=== PATIENT | female | born 1950 | race Caucasian/White ===

== ENCOUNTER 2016-07-27 12:06 | Inpatient (IN) | payer MEDICAID ==
[~2016-07-27] VITALS: Ht 152.4 cm; Wt 73.8 kg
[2016-07-27] MEDS ORDERED: SOD CHLORIDE 0.9% 1,000 ML IV STA ×3 (12:09→15:16)
[2016-07-27] MEDS ORDERED: AZITHROMYCIN 500MG/NS (PMX) 250 ML IV STA (12:09)
[2016-07-27] MEDS ORDERED: METHYLPREDNISOLONE 125 MG INJ IV STA (12:09)
[2016-07-27] MEDS ORDERED: IPRATROPIUM (NEB) 0.5 MG/2.5 ML AMP NEB STA (12:09)
[2016-07-27] MEDS ORDERED: LEVALBUTEROL (NEB) 1.25 MG/0.5 ML AMP INH STA (12:09)
[2016-07-27] MEDS ORDERED: CEFTRIAXONE 1 GM/50 ML (PMX) 50 ML IVPB STA (12:09)
[2016-07-27] MEDS ORDERED: CAPT25TA3 PO (12:43)
[2016-07-27] MEDS ORDERED: PRED50TA PO (12:44)
--- NOTE | 2016-07-27 12:44 | RADRPT ---
PROCEDURE: XR Chest. CLINICAL INDICATION: Cough. Sepsis. TECHNIQUE: Single frontal view. COMPARISON: None. FINDINGS: The lungs are clear. The heart is enlarged. There is no pleural effusion. There is no pneumothorax. IMPRESSION: 1. Cardiomegaly. 2. Clear lungs. RPTAT: QQ .Darien Zamora MD, MD Date Time Electronically viewed and signed by .Darien Zamora MD, MD on 07/27/2016 12:43 .R/
[2016-07-27 13:22] LABS: BASOPHILS % 0.4 % (0.0-2.0); EOSINOPHILS # 0.1 10^3/ul (0.0-0.5); EOSINOPHILS % 0.9 % (0.0-7.0); HEMOGLOBIN 15.5 g/dl (12.0-16.0); LYMPHOCYTES # 0.9 10^3/ul (0.8-2.9); LYMPHOCYTES % 7.8 % (15.0-51.0); MEAN CORPUSCULAR HEMOGLOBIN 29.9 pg (29.0-33.0); MEAN CORPUSCULAR HGB CONC 34.4 g/dl (32.0-37.0); MEAN CORPUSCULAR VOLUME 86.9 fl (82.0-101.0); MONOCYTE # 1.4 10^3/ul (0.3-0.9); MONOCYTES % 12.4 % (0.0-11.0); NEUTROPHIL # 9.1 10^3/ul (1.6-7.5); NEUTROPHILS % 78.5 % (39.0-77.0); PLATELET COUNT 167 10^3/UL (140-440); RED BLOOD COUNT 5.18 10^6/ul (4.20-5.40); RED CELL DISTRIBUTION WIDTH 12.4 % (11.5-14.5); UNCORRECTED WBC 11.6 10^3/ul (4.8-10.8); WHITE BLOOD COUNT 11.6 10^3/ul (4.8-10.8)
[2016-07-27 13:24] LABS: CONDITION 1
[2016-07-27 13:27] LABS: ALBUMIN 4.6 g/dl (3.3-4.9); CHLORIDE 102 mmol/L (97-110); SODIUM 143 mmol/L (135-144)
[2016-07-27 13:28] LABS: POTASSIUM 3.8 mmol/L (3.5-5.1)
[2016-07-27 13:30] LABS: ALANINE AMINOTRANSFERASE 29 IU/L (13-69); ALBUMIN/GLOBULIN RATIO 1.39; ALKALINE PHOSPHATASE 88 IU/L (42-121); ANION GAP 21 (8-16); ASPARTATE AMINO TRANSFERASE 23 IU/L (15-46); BILIRUBIN,INDIRECT 0.2 mg/dl (0-1.1); BILIRUBIN,TOTAL 0.2 mg/dl (0.2-1.3); BLOOD UREA NITROGEN 11 mg/dl (7-20); CARBON DIOXIDE 24 mmol/L (21-31); CREATININE 0.47 mg/dl (0.44-1.00); GLUCOSE 101 mg/dl (70-220); TOTAL PROTEIN 7.9 g/dl (6.1-8.1)
[2016-07-27 13:31] LABS: CALCIUM 9.7 mg/dl (8.4-10.2)
[2016-07-27 13:41] LABS: INR 0.89; PT RATIO 0.9
[2016-07-27 13:42] LABS: PARTIAL THROMBOPLASTIN TIME 29.7 Sec (25.0-35.0)
[2016-07-27 13:43] LABS: TROPONIN-I < 0.012 ng/ml (0.00-0.12)
[2016-07-27] MEDS ORDERED: ONDANSETRON 4 MG INJ IV PRN ×2 (15:00→16:00)
[2016-07-27] MEDS ORDERED: ACETAMINOPHEN 325 MG TAB PO PRN ×2 (15:00→16:00)
[2016-07-27 15:39] LABS: ADD UMIC YES; URINE BILIRUBIN (Dip) NEGATIVE (NEGATIVE); URINE BLOOD (Dip) TRACE (NEGATIVE); URINE COLOR LT. YELLOW (YELLOW); URINE GLUCOSE (Dip) NEGATIVE (NEGATIVE); URINE KETONES (Dip) NEGATIVE (NEGATIVE); URINE LEUKOCYTE ESTERASE (Dip) NEGATIVE (NEGATIVE); URINE NITRITE (Dip) NEGATIVE (NEGATIVE); URINE TOTAL PROTEIN (Dip) NEGATIVE (NEGATIVE); URINE UROBILINOGEN (Dip) 0.2 E.U./dL (0.1-1.0)
[2016-07-27 15:55] LABS: SQUAMOUS EPITHELIAL CELL,UR OCCASIONAL
[2016-07-27] MEDS ORDERED: HYDROCODONE/APAP (5/325) TAB PO PRN ×2 (16:00)
[2016-07-27] MEDS ORDERED: morphine 2 MG INJ IV PRN (16:00)
[2016-07-27] MEDS ORDERED: MAGNESIUM HYDROXIDE 30ML CUP PO PRN (16:00)
[2016-07-27] MEDS ORDERED: ACET/BUTAL/CAFF TAB PO ONE (16:00)
[2016-07-27] MEDS ORDERED: BISACODYL 10 MG SUPP PR PRN (16:00)
[2016-07-27] MEDS ORDERED: NACL 0.9% 3 ML SYG IV SCH (16:00)
[2016-07-27] MEDS ORDERED: ACET/BUTAL/CAFF TAB PO PRN (16:00)
[2016-07-27] MEDS ORDERED: DOCUSATE SODIUM 100 MG CAP PO PRN (16:00)
[2016-07-27] MEDS ORDERED: ACETAMINOPHEN 650 MG SUPP PR PRN (16:00)
--- NOTE | 2016-07-27 16:11 | HP ---
Date/Time of Note Date/Time of Note DATE: 07/27/16 TIME: 16:01 Assessment/Plan VTE Prophylaxis VTE Prophylaxis Intervention: SCD's Assessment/Plan Chief Complaint/Hosp Course Assessment and plan 1. Acute asthma exacerbation. Patient did state she was diagnosed with asthma 45 years ago. She does not know which bronchitis she is currently taking. We'll provide her with Xopenex as well as Atrovent given patient's tachycardia. We'll get door assembler follow. We'll start on steroid. Continue on O2 and titrate down as tolerated 2. Suspect sepsis. Etiology and clear at this time. Patient presents with fever as well as tachycardia. We'll start on antibiotics for now. Suspect URI. We'll follow up on cam cultures 3. Accelerated hypertension. We'll plan on antihypertensives and adjust as needed 4. Leukocytosis secondary to #2. We'll provide with antibiotics for now. Initial lactic acid noted at 1.7 5. Tachycardia likely in response to #1 and #2. We'll treat underlying cause. Continue telemetry monitoring. Pattern Maker Programer to follow pending clinical course. We'll get echocardiogram. DVT prophylaxis: [facility] Admission process time is 40 minutes Discussed but of care with Dr. Khan Problems: HPI/ROS Admit Date/Time Admit Date/Time Hx of Present Illness This is a 66-year-old female with history of hypertension and asthma who recently moved to the [facility] from [facility] roughly 2 months ago came to [facility] due to reports of shortness of breath. According to the patient shouldn't having shortness of breath on and off intermittently since May 2016. She did state that it progressively got worse and went to [facility] one week ago and is prescribed prednisone there. No reports of pneumonia or any kind of upper respiratory infection. She does state that she takes some inhalers at home but does not know the name. Upon arrival to [facility] she was noted to have active bronchospasm.Chest radiograph showed clear lungs and only cardiomegaly. No pleural effusion was seen. Additional laboratory work should the patient have slight leukocytosis with white count 11.6 she was also noted to be febrile with temperature 100.1 and pulse at 144 with also noted accelerated hypertension with blood pressure as high as 175/101. She also noted with pulse ox is low as 89%. She denies any chest pain but does state that she has some rib pain on deep inspiration. Denies any fevers at home. States that she does have some dyspnea on exertion. No nausea or vomiting. No reported dysuria. Patient does report better breathing after receiving Solu-Medrol as well as breathing treatment. We will evaluate her for the aforementioned issues. ROS 12 point review of systems obtained and entirely negative except that mentioned in history of present illness PMH/Family/Social Past Medical History Medical/surgical history 1. Asthma 2. Hypertension Family History Significant Family History: no pertinent family hx Social History Alcohol Use: none Smoking Status: Never smoker Drug Use: none Exam/Review of Systems Vital Signs Vitals Vital Signs Date Time Temp Pulse Resp B/P Pulse Ox O2 Delivery O2 Flow Rate FiO2 07/27/16 15:39 99.7 137 24 143/82 93 3.0 07/27/16 13:05 Nasal Cannula Exam Exam General: No acute signs or symptoms of distress Eyes: pupils equal round, Anicteric sclera Neck: Supple nontender, no JVD Cardiac: S1-S2 auscultated, tachycardic Pulmonary: Noted with wheezing bilateral lung whitmore GI: Abdomen soft nontender nondistended, bowel sounds active Extremities: No edema bilateral lower extremities Skin: Clean dry and intact Neurologic: Alert to person place and time and situation Labs Result Diagram: 07/27/16 1245 07/27/16 1245 Medications Medications Current Medications Captopril (Capoten) 25 mg DAILY PO ; Start 07/28/16 at 09:00; Status UNV Albuterol/ Ipratropium (Duoneb) 3 ml Q4 HHN ; Start 07/27/16 at 17:00; Status UNV Methylprednisolone Sodium Succinate (Solu-Medrol) 60 mg BID IV ; Start 07/27/16 at 21:00; Status UNV Ondansetron HCl (Zofran Inj) 4 mg Q6H PRN IV NAUSEA AND/OR VOMITING; Start 07/27 at 16:00; Status UNV Acetaminophen (Tylenol Tab) 650 mg Q6H PRN PO PAIN LEVEL 1-3 OR FEVER; Start at 16:00; Status UNV Acetaminophen (Tylenol Supp) 650 mg Q6H PRN TN PAIN LEVEL 1-3 OR FEVER; Start 07/27/16 at 16:00; Status UNV Acetaminophen/ Hydrocodone Bitart ([place] (5/325)) 1 tab Q6H PRN PO MODERATE PAIN LEVEL 4-6; Start 07/27/16 at 16:00; Status UNV Acetaminophen/ Hydrocodone Bitart ([place] (5/325)) 2 tab Q6H PRN PO SEVERE PAIN LEVEL 7-10; Start 07/27/16 at 16:00; Status UNV Morphine Sulfate (morphine) 2 mg Q4H PRN IV SEVERE PAIN LEVEL 7-10; Start at 16:00; Status UNV Docusate Sodium (Colace) 100 mg Q12H PRN PO CONSTIPATION; Start 07/27/16 at 16: 00; Status UNV Magnesium Hydroxide (Milk Of Mag) 30 ml DAILY PRN PO CONSTIPATION; Start at 16:00; Status UNV Bisacodyl (Dulcolax Supp) 10 mg DAILY PRN TN CONSTIPATION; Start 07/27/16 at 16: 00; Status UNV Famotidine (Pepcid Iv) 20 mg Q12 IV ; Start 07/27/16 at 21:00; Status UNV Acetaminophen/ Butalbital/ Caffeine (Fioricet) 2 tab ONCE ONCE PO ; Start at 16:00; Stop 07/27/16 at 16:01; Status UNV Acetaminophen/ Butalbital/ Caffeine (Fioricet) 2 tab Q4 PRN PO cephalgia; Start 07/27/16 at 16:00; Status UNV GEORGE FELIZ Jul 27, 2016 16:10
[2016-07-27] MEDS ORDERED: LORAZEPAM 2 MG INJ IV PRN (16:30)
[2016-07-27] MEDS ORDERED: hydrALAzine 20 MG INJ IV PRN (16:30)
--- NOTE | 2016-07-27 16:46 | ERA ---
ER Documentation Chief Complaint Date/Time DATE: 07/27/16 TIME: 16:43 Chief Complaint BROUGHT IN VIA EMS DUE TO HIGH BLOOD PRESSURE, FEVER, AND SOB HPI Patient is a 58-year-old female with asthma and hypertension who presents with cough and fever. The patient was brought in by ambulance. She also has high blood pressure. She was at the [place] emergency department 1 week ago and was treated with prednisone for asthma exacerbation. However she has continued to worsen. She does not currently have a primary doctor. Symptoms have been constant and worsening. ROS All systems reviewed and are negative except as per history of present illness. Medications Home Meds Reported Medications Prednisone* (Prednisone*) 50 Mg Tablet, 50 MG PO DAILY, TAB STARTED 07-18-16 07/27/16 Captopril* (Captopril*) 25 Mg Tablet, 25 MG PO DAILY, #60 TAB BROUGHT MED FROM [facility] 07/27/16 Allergies Allergies: Coded Allergies: No Known Allergy (Unverified , 07/27/16) PMhx/Soc Medical and Surgical Hx: pt denies Surgical Hx Hx Respiratory Disorders: Yes (ASTHMA ) Hx Cardiac Disorders: Yes (HTN) Hx Alcohol Use: No Hx Substance Use: No Hx Tobacco Use: No Smoking Status: Never smoker FmHx Family History: No diabetes Physical Exam Vitals Vital Signs Date Time Temp Pulse Resp B/P Pulse Ox O2 Delivery O2 Flow Rate FiO2 07/27/16 15:39 99.7 137 24 143/82 93 3.0 07/27/16 13:05 144 24 93 Nasal Cannula 3.0 07/27/16 12:55 Nasal Cannula 2 07/27/16 12:22 100.1 144 24 175/101 89 Physical Exam Const: Mild distress Head: Atraumatic Eyes: Normal Conjunctiva ENT: Normal External Ears, Nose and Mouth. Neck: Full range of motion..~ No meningismus. Resp: Wheezing diffusely Cardio: Tachycardic rate Abd: Soft, non tender, non distended. Normal bowel sounds Skin: Pale Back: No midline or flank tenderness Ext: No cyanosis, or edema Neur: Awake and alert Psych: Normal Mood and Affect Result Diagram: 07/27/16 1245 07/27/16 1245 Results 24 hrs Laboratory Tests Test 07/27/16 11:24 07/27/16 12:45 07/27/16 15:19 Lactic Acid Level 1.7mmol/L Activated Partial Thromboplast Time 29.7Sec Alanine Aminotransferase (ALT/SGPT) 29IU/L Albumin 4.6g/dl Albumin/Globulin Ratio 1.39 Alkaline Phosphatase 88IU/L Anion Gap 21 Aspartate Amino Transf (AST/SGOT) 23IU/L Basophils # 0.010^3/ul Basophils % 0.4% Blood Urea Nitrogen 11mg/dl Calcium Level 9.7mg/dl Carbon Dioxide Level 24mmol/L Chloride Level 102mmol/L Creatinine 0.47mg/dl Direct Bilirubin 0.00mg/dl Eosinophils # 0.110^3/ul Eosinophils % 0.9% Globulin 3.30g/dl Glucose Level 101mg/dl Hematocrit 45.0% Hemoglobin 15.5g/dl INR International Normalized Ratio 0.89 Indirect Bilirubin 0.2mg/dl Lymphocytes # 0.910^3/ul Lymphocytes % 7.8% Mean Corpuscular Hemoglobin 29.9pg Mean Corpuscular Hemoglobin Concent 34.4g/dl Mean Corpuscular Volume 86.9fl Mean Platelet Volume 10.0fl Monocytes # 1.410^3/ul Monocytes % 12.4% Neutrophils # 9.110^3/ul Neutrophils % 78.5% Nucleated Red Blood Cells # 0.010^3/ul Nucleated Red Blood Cells % 0.0/100WBC Platelet Count 49564^3/UL Potassium Level 3.8mmol/L Prothrombin Time 12.0Sec Prothrombin Time Ratio 0.9 Red Blood Count 5.1810^6/ul Red Cell Distribution Width 12.4% Sodium Level 143mmol/L Total Bilirubin 0.2mg/dl Total Protein 7.9g/dl Troponin I < 0.012ng/ml White Blood Count 11.610^3/ul Urine Bilirubin NEGATIVE Urine Clarity CLEAR Urine Color LT. YELLOW Urine Glucose NEGATIVE% Urine Hemoglobin TRACE Urine Ketones NEGATIVE Urine Leukocyte Esterase NEGATIVE Urine Microscopic RBC 2-5/HPF Urine Microscopic WBC 0-2/HPF Urine Nitrite NEGATIVE Urine Specific [place] 1.010 Urine Squamous Epithelial Cells OCCASIONAL Urine Total Protein NEGATIVE Urine Urobilinogen 0.2 E.U./dL Urine pH 6.5 Current Medications Medications (Trade) Dose Ordered Sig/[place] Route PRN Reason Start Time Stop Time Status Last Admin Dose Admin Ceftriaxone Sodium 50 ml @ 100 mls/hr ONCE STAT IVPB 07/27/16 12:09 2/3/17 12:38 DC 07/27/16 13:00 Azithromycin 250 ml @ 250 mls/hr ONCE STAT IV 07/27/16 12:09 07/27/16 13:08 DC 07/27/16 14:14 Sodium Chloride 1,000 ml @ 1,000 mls/hr Q1H STAT IV 07/27/16 12:09 07/27/16 13:08 DC 07/27/16 13:01 Sodium Chloride (NS) 1,000 ml @ 1,000 mls/hr Q1H STAT IV 07/27/16 12:09 07/27/16 13:08 DC 07/27/16 14:16 Ipratropium [place] (Atrovent 0.02% (Neb)) 0.5 mg ONCE STAT NEB 07/27/16 12:09 07/27/16 12:11 DC 07/27/16 13:04 Methylprednisolone Sodium Succinate (Solu-Medrol) 125 mg ONCE STAT IV 07/27/16 12:09 07/27/16 12:11 DC 07/27/16 13:00 Levalbuterol (Xopenex Neb) 1.25 mg ONCE STAT INH 07/27/16 12:09 07/27/16 12:11 DC 07/27/16 13:04 Ondansetron HCl (Zofran Inj) 4 mg BRIDGE ORDER PRN IV NAUSEA AND/OR VOMITING 07/27/16 15:00 07/28/16 14:59 Acetaminophen 650 mg 650 mg ER BRIDGE PRN PO MILD PAIN/FEVER 07/27/16 15:00 07/28/16 14:59 07/27/16 15:42 Sodium Chloride (NS) 1,000 ml @ 1,000 mls/hr Q1H STAT IV 07/27/16 15:16 07/27/16 16:15 DC Captopril (Capoten) 25 mg DAILY PO 07/28/16 09:00 UNV Albuterol/ Ipratropium (Duoneb) 3 ml Q4 HHN 07/27/16 17:00 07/27/16 17:00 DC Methylprednisolone Sodium Succinate (Solu-Medrol) 60 mg BID IV 07/27/16 21:00 UNV IV Flush (NS 3 ml) 3 ml PER PROTOCOL IV 07/27/16 16:00 UNV Ondansetron HCl (Zofran Inj) 4 mg Q6H PRN IV NAUSEA AND/OR VOMITING 07/27/16 16:00 UNV Acetaminophen (Tylenol Tab) 650 mg Q6H PRN PO PAIN LEVEL 1-3 OR FEVER 07/27/16 16:00 UNV Acetaminophen (Tylenol Supp) 650 mg Q6H PRN PA PAIN LEVEL 1-3 OR FEVER 07/27/16 16:00 UNV Acetaminophen/ Hydrocodone Bitart ([place] (5/325)) 1 tab Q6H PRN PO MODERATE PAIN LEVEL 4-6 07/27/16 16:00 UNV Acetaminophen/ Hydrocodone Bitart ([place] (5/325)) 2 tab Q6H PRN PO SEVERE PAIN LEVEL 7-10 07/27/16 16:00 UNV Morphine Sulfate (morphine) 2 mg Q4H PRN IV SEVERE PAIN LEVEL 7-10 07/27/16 16:00 UNV Docusate Sodium (Colace) 100 mg Q12H PRN PO CONSTIPATION 07/27/16 16:00 UNV Magnesium Hydroxide (Milk Of Mag) 30 ml DAILY PRN PO CONSTIPATION 07/27/16 16:00 UNV Bisacodyl (Dulcolax Supp) 10 mg DAILY PRN PA CONSTIPATION 07/27/16 16:00 UNV Famotidine (Pepcid Iv) 20 mg Q12 IV 07/27/16 21:00 UNV Acetaminophen/ Butalbital/ Caffeine (Fioricet) 2 tab ONCE ONCE PO 07/27/16 16:00 07/27/16 16:17 DC Acetaminophen/ Butalbital/ Caffeine (Fioricet) 2 tab Q4 PRN PO cephalgia 07/27/16 16:00 UNV Levalbuterol (Xopenex Hfa) 1 puff Q4 INH 07/27/16 17:00 UNV Ipratropium [place] 0.5 mg 0.5 mg Q6 HHN 07/27/16 18:00 UNV Ceftriaxone Sodium (Rocephin) 50 ml @ 100 mls/hr DAILY IVPB 07/28/16 09:00 UNV Amlodipine Besylate (Norvasc) 5 mg BID PO 07/27/16 21:00 UNV Hydralazine HCl (Apresoline) 10 mg Q4 PRN IV sbp>160 07/27/16 16:30 UNV Lorazepam (Ativan) 0.5 mg Q6 PRN IV anxiety 07/27/16 16:30 UNV Procedures/MDM EKG read by me: Rate/Rhythm: Sinus tachycardia at a rate of 141 Intervals: Normal Impression: Sinus tachycardia without evidence of ischemia Chest x-ray shows no pneumonia per radiology. Patient is a 66-year-old female with asthma who presents with what appears to be acute COPD exacerbation. She had tachycardia and hypoxia as well as fever upon arrival. Flu swab was negative. X-ray shows no pneumonia. Urinalysis shows no obvious urine infection. At this point I doubt sepsis. I believe this is likely a viral syndrome causing acute COPD exacerbation with hypoxia. For this reason she will need supplemental oxygen and admission. I did order Xopenex, Atrovent, Solu-Medrol, ceftriaxone, and Zithromax. The patient will be admitted to the panel team as she does not have a primary doctor and is never been admitted before. I doubt pneumonia, pneumothorax, or pulmonary embolism. Critical Care: Time: 35 minutes excluding all billable procedures. Treatments/Evaluations: Close monitoring and treatment of unstable vital signs, cardiorespiratory, and neurologic status, while maintaining tight balance of fluid, respiratory, and cardiac interventions. Departure Diagnosis: Primary Impression: Hypoxia Additional Impressions: Fever Qualified Code: R50.9 - Fever, unspecified fever cause COPD exacerbation Condition: Serious KARTIK PHILIP MD Jul 27, 2016 16:46
[2016-07-27] MEDS ORDERED: ALBUTEROL/IPRATROPIUM (NEB) 3 ML AMP HHN SCH (17:00)
--- NOTE | 2016-07-27 17:09 | RADRPT ---
Echocardiogram Report Patient Name: DAVID ALVARADO Gender: Female Date: 1950 Study Date: 27-Jul-2016 District Leader: Candido Cramer RDCS Location: ER Ref. Physician: GEORGE FELIZ Quality: Technically Difficult Study Procedures: Transthoracic echocardiogram with complete 2D, M-Mode, and doppler examination. Indications: Dyspnea. 2D/M Mode Doppler Measurement Value Normal Ranges Measurement Value Normal Ranges LVIDd 2D 4.2 3.5 - 5.6 cm AV Peak Oleg 1.3 m/sec LVIDs 2D 2.5 2.1 - 4.1 cm AV Peak PG 6.8 mmHg LVPWd 2D 1.0 0.6 - 1.1 cm LVOT Peak Oleg 1.1 m/sec IVSd 2D 1.0 0.6 - 1.1 cm LVOT Peak PG 4.5 mmHg AoR Diam 2D 2.5 2.0 - 3.7 cm EDV 2D 79.0 cm3 ESV 2D 16.5 cm3 LA Dimen 2D 4.0 2.3 - 4.0 cm Findings Left Ventricle: Normal left ventricular systolic function. Normal left ventricular cavity size. Normal left ventricular wall thickness. Ejection fraction is visually estimated at 60 %. Right Ventricle: Normal right ventricular size. Normal right ventricular systolic function. Left Atrium: Upper limit of normal left atrial size. Right Atrium: The right atrium is normal in size. Mitral Valve: Normal appearance and function of the mitral valve with trace physiologic regurgitation. Aortic Valve: Normal appearance of the aortic valve. No significant aortic stenosis or insufficiency. Tricuspid Valve: Normal appearance and function of the tricuspid valve with trace physiologic regurgitation. Pericardium: Normal pericardium with no significant pericardial effusion. Aorta: Normal aortic root. IVC: Normal size and normal respiratory collapse consistent with normal right atrial pressure. Conclusions 1.Normal left ventricular systolic function. Normal left ventricular cavity size. Normal left ventricular wall thickness. Ejection fraction is visually estimated at 60 %. 2.Normal appearance and function of the mitral valve with trace physiologic regurgitation. 3.Normal appearance and function of the tricuspid valve with trace physiologic regurgitation. Electronically Signed By: Adis Jesus 27-Jul-2016 17:08:33 -0800 Patient Name: DAVID ALVARADO Study Date: 27-[id number]
--- NOTE | 2016-07-27 18:52 | CONS ---
DATE OF ADMISSION: 07/27/2016 DATE OF CONSULTATION: 07/27/2016 TYPE OF CONSULTATION: Pulmonary. REASON FOR CONSULTATION: Shortness of breath. Thank you, Dr. Khan, for this consultation. HISTORY OF PRESENT ILLNESS: This is a 66-year-old lady who presents with a several-day history of i ncreasing cough, shortness of breath, subjective fever, seen at [facility] approximately 1 week ago, commenced on steroids at that time. She came here with increasing shortness of breath as stat ed and was found to have mild hypoxemia, leukocytosis, and low pulse oximetry. She, in addition, lara d a fever of 101 with pleuritic chest pain. No hemoptysis, hematemesis. She is a nonsmoker. No tr randolph history other than recent arrival from [facility] 2 months ago. PAST MEDICAL HISTORY: Asthma and hypertension. No prior history of intubations, mechanical ventila tion, or ICU admissions. MEDICATIONS: Per chart. ALLERGIES: NONE. PHYSICAL EXAMINATION: GENERAL: Well-nourished, well-developed lady, comfortable at rest, no acute distress. VITAL SIGNS: Currently afebrile. T-max was 100.1, pulse is 130, blood pressure 143/83, O2 saturati on 96% on 2 L nasal cannula. NECK: Supple. No JVD or lymphadenopathy. CARDIAC: S1, S2, no added sounds or murmurs. CHEST: Diminished air entry bilaterally. ABDOMEN: Soft, nontender. No guarding or rebound. EXTREMITIES: No cyanosis, clubbing, edema. NEUROLOGIC: Grossly intact. No focal deficits. LABORATORY DATA: White count 11.6, hemoglobin 13.5, platelets of 167. Lactic acid 1.7. BUN 11, cr eatinine 0.47. IMPRESSION AND PLAN: 1. Acute bronchitis with probable asthma exacerbation. 2. Tachycardia secondary to above. 3. Possible acute tracheobronchitis. Should have work up for possible underlying viral infection. Dictated By: LUIS E IBARRA/LINETTE Conf#: [id number] DID#: [id number]
[2016-07-27] MEDS: LEVALBUTEROL (NEB) 0.63 MG/3 ML AMP HHN SCH (20:00)
[2016-07-27] MEDS: IPRATROPIUM (NEB) 0.5 MG/2.5 ML AMP HHN SCH (20:00)
[2016-07-27 20:24] VITALS: TEMP 98.1
[2016-07-27] MEDS: AMLODIPINE 5 MG TAB PO SCH (21:42)
[2016-07-27] MEDS: METHYLPREDNISOLONE 125 MG INJ IV SCH (21:44)
[2016-07-27] MEDS: FAMOTIDINE 20 MG INJ IV SCH (21:44)
[2016-07-27 21:54] VITALS: Ht 152.4 cm; Wt 73.8 kg
[2016-07-28] VITALS (12 sets, daily range): BP systolic 115–142; BP diastolic 71–86; PULSE 104–150; RESP 18–20
[2016-07-28] MEDS: LEVALBUTEROL (NEB) 0.63 MG/3 ML AMP HHN SCH ×4 (02:06→19:43)
[2016-07-28] MEDS: IPRATROPIUM (NEB) 0.5 MG/2.5 ML AMP HHN SCH ×4 (02:06→19:43)
[2016-07-28 05:52] LABS: ALBUMIN 4.2 g/dl (3.3-4.9)
[2016-07-28 05:53] LABS: POTASSIUM 3.9 mmol/L (3.5-5.1)
[2016-07-28 05:55] LABS: ALBUMIN/GLOBULIN RATIO 1.61; BILIRUBIN,INDIRECT 0.1 mg/dl (0-1.1); BILIRUBIN,TOTAL 0.1 mg/dl (0.2-1.3); CREATININE 0.45 mg/dl (0.44-1.00); TOTAL PROTEIN 6.8 g/dl (6.1-8.1)
[2016-07-28 05:56] LABS: CALCIUM 9.4 mg/dl (8.4-10.2); CHOL/HDL RATIO 4.1 RATIO; MAGNESIUM 1.8 mg/dl (1.7-2.5); PHOSPHORUS 4.3 mg/dl (2.5-4.9)
[2016-07-28 06:06] LABS: T3 UPTAKE 35.1 % (23.5-40.5)
[2016-07-28 06:21] LABS: THYROID STIMULATING HORMONE 0.198 MIU/L (0.465-4.680)
[2016-07-28] MEDS: METHYLPREDNISOLONE 125 MG INJ IV SCH ×2 (08:48→21:16)
[2016-07-28] MEDS: AMLODIPINE 5 MG TAB PO SCH ×2 (08:48→21:16)
[2016-07-28] MEDS: FAMOTIDINE 20 MG INJ IV SCH (08:48)
[2016-07-28] MEDS: CEFTRIAXONE 2 GM/50 ML (PMX) 50 ML IVPB SCH (09:02)
[2016-07-28 09:17] LABS: AADO2 Arterial 47.1 mmHg (7.0-24.0); Allen Test ACCEPTAB; Arterial Base Excess 2.4 mmol/L (-3.0-3); Arterial COHb 0.7 % (0.0-3.0); Arterial Fraction of Oxyhgb 89.3 % (93.0-99.0); Arterial HCO3 26.7 mmol/L (22.0-26.0); Arterial MetHb 0.3 % (0.0-1.5); Arterial Total Hemglobin 14.7 g/dl (12.0-18.0); MODE ROOM AIR
--- NOTE | 2016-07-28 09:30 | RADRPT ---
PROCEDURE: XR Chest AP portable CLINICAL INDICATION: Short of breath TECHNIQUE: An AP portable radiograph of the chest was submitted. COMPARISON: 07/27/2016 FINDINGS: Support Hardware: None Cardiovascular: We are remains upper normal in size while the aorta appears minimally atheroscleroti c. The piriform plantar vasculature is unremarkable. Lung Whitmore: The lung whitmore appear clear with no nodule, alveolar infiltrate, for a interstitial pr ominence evident. Pleural Spaces: No pneumothorax or pleural effusion is identified. Osseous Structures: The osseous structures appear intact. Soft Tissues: The soft tissues appear unremarkable. IMPRESSION: 1. Persistent borderline cardiomegaly with the pulmonary vasculature upper normal. 2. Mildly atherosclerotic aorta, unchanged. Physician José Date Time Electronically viewed and signed by Adelfo Madison Physician on 07/28/2016 09:29 /
--- NOTE | 2016-07-28 13:06 | CONS ---
Date/Time of Note Date/Time of Note DATE: 07/28/16 TIME: 13:05 Consult Date/Type/Reason Admit Date/Time Jul 27, 2016 at 20:51 Initial Consult Date Type of Consultation: pulmonary Subjective Patient feels better today less shortness of breath Less cough less congestion awake alert oriented Remains hemodynamic stable Remains somewhat tachycardic Objective Vital Signs Date Time Temp Pulse Resp B/P Pulse Ox O2 Delivery O2 Flow Rate FiO2 07/28/16 11:00 106 18 132/85 92 Nasal Cannula 2.0 07/28/16 10:08 98.4 Intake and Output 07/27/16 07/27/16 07/28/16 15:00 23:00 07:00 Intake Total 1050 ml 250 ml Balance 1050 ml 250 ml GENERAL: Well-nourished well-developed [place] lady comfortable at rest VITAL SIGNS: per chart NECK: Supple. No JVD or lymphadenopathy. CARDIAC EXAM: S1, S2. No added sounds or murmurs. CHEST: clear bilaterally, No added sounds, rales or wheezes ABDOMEN: Soft, nontender. No guarding or rebound. EXTREMITIES: No cyanosis, clubbing or edema. NEUROLOGIC: Generalized weakness. No focal deficits. Results/Medications Result Diagram: 07/27/16 1245 07/28/16 0502 Results 24 hrs Laboratory Tests Test 07/27/16 15:19 07/27/16 19:30 07/27/16 23:05 07/28/16 05:02 Urine Bilirubin NEGATIVE Urine Clarity CLEAR Urine Color LT. YELLOW Urine Glucose NEGATIVE Urine Hemoglobin TRACE Urine Ketones NEGATIVE Urine Leukocyte Esterase NEGATIVE Urine Microscopic RBC 2-5 Urine Microscopic WBC 0-2 Urine Nitrite NEGATIVE Urine Specific [place] 1.010 Urine Squamous Epithelial Cells OCCASIONAL Urine Total Protein NEGATIVE Urine Urobilinogen 0.2 E.U./dL Urine pH 6.5 Lactic Acid Level 3.1 H 2.3 H 1.2 Alanine Aminotransferase (ALT/SGPT) 28 Albumin 4.2 Albumin/Globulin Ratio 1.61 Alkaline Phosphatase 68 Anion Gap 17 H Aspartate Amino Transf (AST/SGOT) 20 Blood Urea Nitrogen 8 Calcium Level 9.4 Carbon Dioxide Level 27 Chloride Level 102 Cholesterol Level 209 H Cholesterol/HDL Ratio 4.1 Creatinine 0.45 Direct Bilirubin 0.00 Free Thyroxine Index 2.42 Globulin 2.60 Glucose Level 102 HDL Cholesterol 50 Hemoglobin A1c 5.4 Indirect Bilirubin 0.1 LDL Cholesterol, Calculated 144 Magnesium Level 1.8 Phosphorus Level 4.3 Potassium Level 3.9 Sodium Level 142 Thyroid Stimulating Hormone (TSH) 0.198 L Thyroxine (T4) 6.9 Total Bilirubin 0.1 L Total Protein 6.8 # Triglycerides Level 77 Triiodothyronine (T3) Uptake 35.1 Test 07/28/16 08:39 Arterial Blood HCO3 26.7 H Arterial Blood Base Excess 2.4 Arterial Blood Oxygen Saturation 90.2 L Gregorio Test ACCEPTAB Arterial Blood Gas Puncture Site LB Arterial Blood Carboxyhemoglobin 0.7 Arterial Blood Date Drawn 07/28/2016 9:05:39 AM Arterial Blood Methemoglobin 0.3 Arterial Blood pCO2 (Temp correct) 40.2 Arterial Blood pH (Temp corrected) 7.440 Arterial Blood pO2 (Temp corrected) 54.5 *L Blood Gas A-a O2 Differential 47.1 H Blood Gas Critical Value Read Back REGIDOR R Blood Gas Modality ROOM AIR Blood Gas Notified Time 07/28/2016 9:15:02 AM Blood Gas Notified Whom TK Blood Gas Specimen Source Blood arterial Blood Gas Temperature 37.0 FiO2 21.0 Oxyhemoglobin Percent 89.3 L Total Hemoglobin 14.7 Medications Current Medications Captopril (Capoten) 25 mg DAILY PO Last administered on 07/28/16 08:48; Admin Dose 25 MG; Start 07/28/16 at 09:00 Methylprednisolone Sodium Succinate (Solu-Medrol) 60 mg BID IV Last administered on 07/28/16 08:48; Admin Dose 60 MG; Start 07/27/16 at 21:00 Ondansetron HCl (Zofran Inj) 4 mg Q6H PRN IV NAUSEA AND/OR VOMITING; Start 07/27 at 16:00 Acetaminophen (Tylenol Tab) 650 mg Q6H PRN PO PAIN LEVEL 1-3 OR FEVER; Start at 16:00 Acetaminophen (Tylenol Supp) 650 mg Q6H PRN [place] PAIN LEVEL 1-3 OR FEVER; Start 07/27/16 at 16:00 Acetaminophen/ Hydrocodone Bitart ([place] (5/325)) 1 tab Q6H PRN PO MODERATE PAIN LEVEL 4-6 Last administered on 07/27/16 23:16; Admin Dose 1 TAB; Start 07/27 at 16:00 Acetaminophen/ Hydrocodone Bitart ([place] (5/325)) 2 tab Q6H PRN PO SEVERE PAIN LEVEL 7-10; Start 07/27/16 at 16:00 Morphine Sulfate (morphine) 2 mg Q4H PRN IV SEVERE PAIN LEVEL 7-10; Start at 16:00 Docusate Sodium (Colace) 100 mg Q12H PRN PO CONSTIPATION; Start 07/27/16 at 16: 00 Magnesium Hydroxide (Milk Of Mag) 30 ml DAILY PRN PO CONSTIPATION; Start at 16:00 Bisacodyl (Dulcolax Supp) 10 mg DAILY PRN [place] CONSTIPATION; Start 07/27/16 at 16: 00 Famotidine (Pepcid Iv) 20 mg DAILY IV Last administered on 07/28/16 08:48; Admin Dose 20 MG; Start 07/27/16 at 21:00 Acetaminophen/ Butalbital/ Caffeine 2 tab 2 tab Q4 PRN PO cephalgia; Start 07/27 at 16:00 Ceftriaxone Sodium (Rocephin) 50 ml @ 100 mls/hr DAILY IVPB Last administered on 07/28/16 09:02; Admin Dose 100 MLS/HR; Start 07/28/16 at 09:00 Amlodipine Besylate (Norvasc) 5 mg BID PO Last administered on 07/28/16 08:48; Admin Dose 5 MG; Start 07/27/16 at 21:00 Hydralazine HCl (Apresoline) 10 mg Q4 PRN IV sbp>160; Start 07/27/16 at 16:30 Lorazepam (Ativan) 0.5 mg Q6 PRN IV anxiety; Start 07/27/16 at 16:30 Influenza Virus Vaccine (Fluzone) 0.5 ml ONCE ONCE IM* ; Start 07/29/16 at 09:00 ; Stop 07/29/16 at 09:01 Assessment/Plan Chief Complaint/Hosp Course Assessment 1. Acute tracheobronchitis possible asthma aspiration 2. Sinus tachycardia likely secondary to hypoxemia and bronchodilators 3. History of hypertension Plan 1. Continue bronchodilators 2. Continue steroids 3. Continue antibiotics 4. Transfer to telemetry Problems: LUIS E SUERO MD, FCCP Jul 28, 2016 13:06
[2016-07-28 14:06] LABS: ADD UMIC YES; URINE BILIRUBIN (Dip) NEGATIVE (NEGATIVE); URINE BLOOD (Dip) TRACE (NEGATIVE); URINE COLOR LT. YELLOW (YELLOW); URINE GLUCOSE (Dip) NEGATIVE (NEGATIVE); URINE KETONES (Dip) NEGATIVE (NEGATIVE); URINE LEUKOCYTE ESTERASE (Dip) NEGATIVE (NEGATIVE); URINE NITRITE (Dip) NEGATIVE (NEGATIVE); URINE TOTAL PROTEIN (Dip) NEGATIVE (NEGATIVE); URINE UROBILINOGEN (Dip) 0.2 E.U./dL (0.1-1.0)
[2016-07-28 14:27] LABS: BACTERIA,URINE RARE; URINE RBCS 0-2 /HPF (0)
--- NOTE | 2016-07-28 16:06 | PN ---
DATE: FOLLOWUP NOTE SUBJECTIVE: The patient remains stable this morning, on bronchodilators. No shortness of breath, n o fever, no chills, no chest pain, no palpitations. PHYSICAL EXAMINATION: VITAL SIGNS: Temperature 98, pulse 120, blood pressure 132/85, O2 saturation 96% on 2 L nasal cannu la. NECK: Supple. No JVD or lymphadenopathy. CARDIAC EXAM: S1, S2. No added sounds or murmurs. CHEST: Diminished air entry bilaterally. ABDOMEN: Soft, nontender. No guarding or rebound. EXTREMITIES: No cyanosis, clubbing, edema. NEUROLOGIC: Generalized weakness. LABORATORY: White count 11.6, hemoglobin 15.5, platelets 167. BUN 8, creatinine 0.45, PaO2 was 54 on room air. IMPRESSION AND PLAN: 1. Acute hypoxemic respiratory failure. 2. Likely acute tracheobronchitis. 3. Sepsis, polymicrobial. 4. Chronic hypoxemia. 5. End-stage renal failure, on hemodialysis. Patient will require: 1. Continued bronchodilators. 2. Pulmonary toilet. 3. Steroid taper. 4. Pain control. 5. DVT and GI prophylaxis. Dictated By: LUIS E IBARRA/LINETTE Conf#: [id number] DID#: [id number]
--- NOTE | 2016-07-28 17:50 | PN ---
Date/Time of Note Date/Time of Note DATE: 07/28/16 TIME: 17:49 Assessment/Plan VTE Prophylaxis VTE Prophylaxis Intervention: SCD's Lines/Catheters IV [facility]from [facility] [place] Assessment/Plan Chief Complaint/Hosp Course Assessment and plan 1. Acute asthma exacerbation. Patient did state she was diagnosed with asthma 45 years ago. She does not know which bronchitis she is currently taking. We'll provide her with Xopenex as well as Atrovent given patient's tachycardia. We'll get distribution accounting clerk follow. We'll start on steroid. Continue on O2 and titrate down as tolerated 2. Suspect sepsis. Etiology and clear at this time. Patient presents with fever as well as tachycardia. We'll start on antibiotics for now. Suspect URI. We'll follow up on cam cultures 3. Accelerated hypertension. We'll plan on antihypertensives and adjust as needed 4. Leukocytosis secondary to #2. We'll provide with antibiotics for now. Initial lactic acid noted at 1.7 5. Tachycardia likely in response to #1 and #2. We'll treat underlying cause. Continue telemetry monitoring. Family Practice Nurse Practitioner to follow pending clinical course. Family Practice Nurse Practitioner to follow. DVT prophylaxis: SCDs Disposition and plan: Patient noted with tachycardia this morning likely secondary to dyspnea. Family Practice Nurse Practitioner to follow. Patient was transferred to telemetry. Await for clinical improvement of respiratory status Discussed but of care with Dr. Khan Problems: Subjective 24 Hr Interval Summary Free Text/Dictation Still with some shortness of breath. Little bit better Exam/Review of Systems Vital Signs Vitals Vital Signs Date Time Temp Pulse Resp B/P Pulse Ox O2 Delivery O2 Flow Rate FiO2 07/28/16 16:06 104 07/28/16 15:57 2.0 07/28/16 14:55 Nasal Cannula 07/28/16 14:51 99.2 18 116/76 92 Intake and Output 07/27/16 07/27/16 07/28/16 15:00 23:00 07:00 Intake Total 1050 ml 250 ml Balance 1050 ml 250 ml Exam General: No acute signs or symptoms of distress Eyes: pupils equal round, Anicteric sclera Neck: Supple nontender, no JVD Cardiac: S1-S2 auscultated, tachycardic Pulmonary: Noted with wheezing bilateral lung [place] GI: Abdomen soft nontender nondistended, bowel sounds active Extremities: No edema bilateral lower extremities Skin: Clean dry and intact Neurologic: Alert to person place and time and situation Results Result Diagram: 07/27/16 1245 07/28/16 0502 Results 24 hrs Laboratory Tests Test 07/27/16 19:30 07/27/16 23:05 07/28/16 05:02 07/28/16 08:39 Lactic Acid Level 3.1 H 2.3 H 1.2 Alanine Aminotransferase (ALT/SGPT) 28 Albumin 4.2 Albumin/Globulin Ratio 1.61 Alkaline Phosphatase 68 Anion Gap 17 H Aspartate Amino Transf (AST/SGOT) 20 Blood Urea Nitrogen 8 Calcium Level 9.4 Carbon Dioxide Level 27 Chloride Level 102 Cholesterol Level 209 H Cholesterol/HDL Ratio 4.1 Creatinine 0.45 Direct Bilirubin 0.00 Free Thyroxine Index 2.42 Globulin 2.60 Glucose Level 102 HDL Cholesterol 50 Hemoglobin A1c 5.4 Indirect Bilirubin 0.1 LDL Cholesterol, Calculated 144 Magnesium Level 1.8 Phosphorus Level 4.3 Potassium Level 3.9 Sodium Level 142 Thyroid Stimulating Hormone (TSH) 0.198 L Thyroxine (T4) 6.9 Total Bilirubin 0.1 L Total Protein 6.8 # Triglycerides Level 77 Triiodothyronine (T3) Uptake 35.1 Arterial Blood HCO3 26.7 H Arterial Blood Base Excess 2.4 Arterial Blood Oxygen Saturation 90.2 L Gregorio Test ACCEPTAB Arterial Blood Gas Puncture Site LB Arterial Blood Carboxyhemoglobin 0.7 Arterial Blood Date Drawn 07/28/2016 9:05:39 AM Arterial Blood Methemoglobin 0.3 Arterial Blood pCO2 (Temp correct) 40.2 Arterial Blood pH (Temp corrected) 7.440 Arterial Blood pO2 (Temp corrected) 54.5 *L Blood Gas A-a O2 Differential 47.1 H Blood Gas Critical Value Read Back REGIDOR R Blood Gas Modality ROOM AIR Blood Gas Notified Time 07/28/2016 9:15:02 AM Blood Gas Notified Whom TK Blood Gas Specimen Source Blood arterial Blood Gas Temperature 37.0 FiO2 21.0 Oxyhemoglobin Percent 89.3 L Total Hemoglobin 14.7 Test 07/28/16 11:55 Urine Bacteria RARE Urine Bilirubin NEGATIVE Urine Clarity CLEAR Urine Color LT. YELLOW Urine Epithelial Cells RARE Urine Glucose NEGATIVE Urine Hemoglobin TRACE Urine Ketones NEGATIVE Urine Leukocyte Esterase NEGATIVE Urine Microscopic RBC 0-2 Urine Microscopic WBC NONE SEEN Urine Nitrite NEGATIVE Urine Specific [place] 1.010 Urine Total Protein NEGATIVE Urine Urobilinogen 0.2 E.U./dL Urine pH 6.0 Medications Medications Current Medications Captopril (Capoten) 25 mg DAILY PO Last administered on 07/28/16 08:48; Admin Dose 25 MG; Start 07/28/16 at 09:00 Methylprednisolone Sodium Succinate (Solu-Medrol) 60 mg BID IV Last administered on 07/28/16 08:48; Admin Dose 60 MG; Start 07/27/16 at 21:00 Ondansetron HCl (Zofran Inj) 4 mg Q6H PRN IV NAUSEA AND/OR VOMITING; Start 07/27 at 16:00 Acetaminophen (Tylenol Tab) 650 mg Q6H PRN PO PAIN LEVEL 1-3 OR FEVER; Start at 16:00 Acetaminophen (Tylenol Supp) 650 mg Q6H PRN [place] PAIN LEVEL 1-3 OR FEVER; Start 07/27/16 at 16:00 Acetaminophen/ Hydrocodone Bitart ([place] (5/325)) 1 tab Q6H PRN PO MODERATE PAIN LEVEL 4-6 Last administered on 07/27/16 23:16; Admin Dose 1 TAB; Start 07/27 at 16:00 Acetaminophen/ Hydrocodone Bitart ([place] (5/325)) 2 tab Q6H PRN PO SEVERE PAIN LEVEL 7-10; Start 07/27/16 at 16:00 Morphine Sulfate (morphine) 2 mg Q4H PRN IV SEVERE PAIN LEVEL 7-10; Start at 16:00 Docusate Sodium (Colace) 100 mg Q12H PRN PO CONSTIPATION; Start 07/27/16 at 16: 00 Magnesium Hydroxide (Milk Of Mag) 30 ml DAILY PRN PO CONSTIPATION; Start at 16:00 Bisacodyl (Dulcolax Supp) 10 mg DAILY PRN [place] CONSTIPATION; Start 07/27/16 at 16: 00 Famotidine (Pepcid Iv) 20 mg DAILY IV Last administered on 07/28/16 08:48; Admin Dose 20 MG; Start 07/27/16 at 21:00 Acetaminophen/ Butalbital/ Caffeine 2 tab 2 tab Q4 PRN PO cephalgia; Start 07/27 at 16:00 Ceftriaxone Sodium (Rocephin) 50 ml @ 100 mls/hr DAILY IVPB Last administered on 07/28/16 09:02; Admin Dose 100 MLS/HR; Start 07/28/16 at 09:00 Amlodipine Besylate (Norvasc) 5 mg BID PO Last administered on 07/28/16 08:48; Admin Dose 5 MG; Start 07/27/16 at 21:00 Hydralazine HCl (Apresoline) 10 mg Q4 PRN IV sbp>160; Start 07/27/16 at 16:30 Lorazepam (Ativan) 0.5 mg Q6 PRN IV anxiety; Start 07/27/16 at 16:30 Influenza Virus Vaccine (Fluzone) 0.5 ml ONCE ONCE IM* ; Start 07/29/16 at 09:00 ; Stop 07/29/16 at 09:01 GEORGE FELIZ Jul 28, 2016 17:50
--- NOTE | 2016-07-28 21:10 | RADRPT ---
Vent Rate: 120 bpm RR Interval: 0 msec GA Interval: 168 msec QRS Duration: 82 msec QT Interval: 310 msec QTC Interval: 438 msec P-R-T [place]: 74 - 62 - 49 degrees Sinus tachycardia with occasional premature ventricular complexes Otherwise normal ECG Electronically Signed By: Mark Delaney [id number]
[2016-07-29] VITALS (8 sets, daily range): BP systolic 106–110; BP diastolic 59–68; PULSE 73–102; RESP 19–20
[2016-07-29] MEDS: IPRATROPIUM (NEB) 0.5 MG/2.5 ML AMP HHN SCH ×3 (01:14→13:02)
[2016-07-29] MEDS: LEVALBUTEROL (NEB) 0.63 MG/3 ML AMP HHN SCH ×3 (01:14→13:03)
[2016-07-29 07:03] LABS: BASOPHILS % 0.2 % (0.0-2.0); HEMATOCRIT 41.8 % (37.0-47.0); HEMOGLOBIN 14.4 g/dl (12.0-16.0); LYMPHOCYTES % 14.1 % (15.0-51.0); MEAN CORPUSCULAR HEMOGLOBIN 30.3 pg (29.0-33.0); MEAN CORPUSCULAR HGB CONC 34.4 g/dl (32.0-37.0); MEAN CORPUSCULAR VOLUME 87.9 fl (82.0-101.0); MEAN PLATELET VOLUME 10.3 fl (7.4-10.4); MONOCYTE # 0.5 10^3/ul (0.3-0.9); MONOCYTES % 7.2 % (0.0-11.0); NEUTROPHIL # 5.5 10^3/ul (1.6-7.5); NEUTROPHILS % 78.5 % (39.0-77.0); PLATELET COUNT 165 10^3/UL (140-440); RED BLOOD COUNT 4.75 10^6/ul (4.20-5.40); RED CELL DISTRIBUTION WIDTH 12.6 % (11.5-14.5)
[2016-07-29 07:07] LABS: CONDITION 1; LH ANALYZER COMMENTS 1; SUSPECT 1
[2016-07-29 07:13] LABS: POTASSIUM 3.8 mmol/L (3.5-5.1)
[2016-07-29 07:16] LABS: CREATININE 0.48 mg/dl (0.44-1.00)
[2016-07-29 07:17] LABS: CALCIUM 9.1 mg/dl (8.4-10.2)
[2016-07-29] MEDS: METHYLPREDNISOLONE 125 MG INJ IV SCH (08:43)
[2016-07-29] MEDS: FAMOTIDINE 20 MG INJ IV SCH (08:43)
[2016-07-29] MEDS: AMLODIPINE 5 MG TAB PO SCH (08:44)
[2016-07-29] MEDS ORDERED: INFLUENZA VIRUS VACCINE 0.5 ML (DISPENSING) IM* ONE (09:00)
[2016-07-29] MEDS: CEFTRIAXONE 2 GM/50 ML (PMX) 50 ML IVPB SCH ×2 (09:00→14:06)
[2016-07-29] MEDS ORDERED: XOP15INH INH (10:37)
[2016-07-29] MEDS ORDERED: PRED10TA PO (10:37)
[2016-07-29] MEDS ORDERED: ADV25050 INHALATION (10:37)
[2016-07-29] MEDS ORDERED: FIORICET PO (10:37)
[2016-07-29] MEDS ORDERED: AZIT500T2 PO (10:37)
[2016-07-29] MEDS ORDERED: UDROBAC PO (10:37)
[2016-07-29] MEDS ORDERED: CAPT25TA3 PO (10:37)
--- NOTE | 2016-07-29 10:40 | PDOCDIS ---
Discharge Instructions DIAGNOSIS Discharge Diagnosis: 1. asthma exacerbation 2. acute bronchitis 3. tachycardia CONDITION Patient Condition: Stable HOME CARE INSTRUCTIONS: Special Diet: low chol low fat FOLLOW UP/APPOINTMENTS Appointments 1. Follow up with your primary care provider in one week GEORGE FELIZ Jul 29, 2016 10:39
--- NOTE | 2016-07-29 13:18 | CONS ---
Date/Time of Note Date/Time of Note DATE: 07/29/16 TIME: 13:17 Consult Date/Type/Reason Admit Date/Time Jul 27, 2016 at 20:51 Type of Consultation: pulmonary Subjective GENERAL: Well-nourished well-developed [place] lady comfortable at rest VITAL SIGNS: per chart NECK: Supple. No JVD or lymphadenopathy. CARDIAC EXAM: S1, S2. No added sounds or murmurs. CHEST: clear bilaterally, No added sounds, rales or wheezes ABDOMEN: Soft, nontender. No guarding or rebound. EXTREMITIES: No cyanosis, clubbing or edema. NEUROLOGIC: Generalized weakness. No focal deficits. Objective Vital Signs Date Time Temp Pulse Resp B/P Pulse Ox O2 Delivery O2 Flow Rate FiO2 07/29/16 13:06 92 21 07/29/16 13:03 82 18 07/29/16 08:18 Nasal Cannula 2.0 07/29/16 04:00 98.4 107/59 Intake and Output 07/28/16 07/28/16 07/29/16 15:00 23:00 07:00 Intake Total 50 ml 800 ml 300 ml Balance 50 ml 800 ml 300 ml Results/Medications Result Diagram: 07/29/16 0510 07/29/16 0518 Results 24 hrs Laboratory Tests Test 07/29/16 05:10 07/29/16 05:18 Basophils # 0.0 Basophils % 0.2 Eosinophils # 0.0 Eosinophils % 0.0 Hematocrit 41.8 Hemoglobin 14.4 Lymphocytes # 1.0 Lymphocytes % 14.1 L Mean Corpuscular Hemoglobin 30.3 Mean Corpuscular Hemoglobin Concent 34.4 Mean Corpuscular Volume 87.9 Mean Platelet Volume 10.3 Monocytes # 0.5 Monocytes % 7.2 Neutrophils # 5.5 Neutrophils % 78.5 H Nucleated Red Blood Cells # 0.0 Nucleated Red Blood Cells % 0.0 Platelet Count 165 Red Blood Count 4.75 Red Cell Distribution Width 12.6 White Blood Count 7.0 # Anion Gap 20 H Blood Urea Nitrogen 16 Calcium Level 9.1 Carbon Dioxide Level 28 Chloride Level 100 Creatinine 0.48 Glucose Level 126 Potassium Level 3.8 Sodium Level 144 Medications Current Medications Captopril (Capoten) 25 mg DAILY PO Last administered on 07/29/16t 08:43; Admin Dose 25 MG; Start 07/28/16 at 09:00 Methylprednisolone Sodium Succinate (Solu-Medrol) 60 mg BID IV Last administered on 07/29/16 08:43; Admin Dose 60 MG; Start 07/27/16 at 21:00 Ondansetron HCl (Zofran Inj) 4 mg Q6H PRN IV NAUSEA AND/OR VOMITING; Start 07/27 at 16:00 Acetaminophen (Tylenol Tab) 650 mg Q6H PRN PO PAIN LEVEL 1-3 OR FEVER; Start at 16:00 Acetaminophen (Tylenol Supp) 650 mg Q6H PRN [place] PAIN LEVEL 1-3 OR FEVER; Start 07/27/16 at 16:00 Acetaminophen/ Hydrocodone Bitart ([place] (5/325)) 1 tab Q6H PRN PO MODERATE PAIN LEVEL 4-6 Last administered on 07/27/16 23:16; Admin Dose 1 TAB; Start 07/27 at 16:00 Acetaminophen/ Hydrocodone Bitart ([place] (5/325)) 2 tab Q6H PRN PO SEVERE PAIN LEVEL 7-10; Start 07/27/16 at 16:00 Morphine Sulfate (morphine) 2 mg Q4H PRN IV SEVERE PAIN LEVEL 7-10; Start at 16:00 Docusate Sodium (Colace) 100 mg Q12H PRN PO CONSTIPATION; Start 07/27/16 at 16: 00 Magnesium Hydroxide (Milk Of Mag) 30 ml DAILY PRN PO CONSTIPATION; Start at 16:00 Bisacodyl (Dulcolax Supp) 10 mg DAILY PRN [place] CONSTIPATION; Start 07/27/16 at 16: 00 Famotidine (Pepcid Iv) 20 mg DAILY IV Last administered on 07/29/16 08:43; Admin Dose 20 MG; Start 07/27/16 at 21:00 Acetaminophen/ Butalbital/ Caffeine 2 tab 2 tab Q4 PRN PO cephalgia; Start 07/27 at 16:00 Ceftriaxone Sodium (Rocephin) 50 ml @ 100 mls/hr DAILY IVPB Last administered on 07/28/16 09:02; Admin Dose 100 MLS/HR; Start 07/28/16 at 09:00 Amlodipine Besylate (Norvasc) 5 mg BID PO Last administered on 07/29/16 08:44; Admin Dose 5 MG; Start 07/27/16 at 21:00 Hydralazine HCl (Apresoline) 10 mg Q4 PRN IV sbp>160; Start 07/27/16 at 16:30 Lorazepam (Ativan) 0.5 mg Q6 PRN IV anxiety; Start 07/27/16 at 16:30 Assessment/Plan Chief Complaint/Hosp Course Assessment 1. Acute tracheobronchitis possible asthma aspiration, clinically improved 2. Sinus tachycardia likely secondary to hypoxemia and bronchodilators 3. History of hypertension Plan 1. Continue bronchodilators 2. Continue steroids 3. Continue antibiotics Discharge planning okay from pulmonary standpoint Problems: LUIS E SUERO MD, [facility] Jul 29, 2016 13:18
--- NOTE | 2016-07-29 13:32 | DS ---
Date/Time of Note Date/Time of Note DATE: 07/29/16 TIME: 13:25 Discharge Summary Admission/Discharge Info Admit Date/Time Jul 27, 2016 at 20:51 Discharge Date/Time Final Diagnosis 1. Acute asthma exacerbation. 2. Suspect sepsis. 3. Accelerated hypertension. 4. Leukocytosis secondary to #2. 5. Tachycardia Patient Condition: Stable Consults 1. Dr. Mark Delaney 2. Dr. Tommy Aguiar Hx of Present Illness This is a 66-year-old female with history of hypertension and asthma who recently moved to the [facility] from [facility] roughly 2 months ago came to [facility] due to reports of shortness of breath. According to the patient shouldn't having shortness of breath on and off intermittently since May 2016. She did state that it progressively got worse and went to [facility] one week ago and is prescribed prednisone there. No reports of pneumonia or any kind of upper respiratory infection. She does state that she takes some inhalers at home but does not know the name. Upon arrival to [facility] she was noted to have active bronchospasm.Chest radiograph showed clear lungs and only cardiomegaly. No pleural effusion was seen. Additional laboratory work should the patient have slight leukocytosis with white count 11.6 she was also noted to be febrile with temperature 100.1 and pulse at 144 with also noted accelerated hypertension with blood pressure as high as 175/101. She also noted with pulse ox is low as 89%. She denies any chest pain but does state that she has some rib pain on deep inspiration. Denies any fevers at home. States that she does have some dyspnea on exertion. No nausea or vomiting. No reported dysuria. Patient does report better breathing after receiving Solu-Medrol as well as breathing treatment. We will evaluate her for the aforementioned issues. Hospital Course This is a 66-year-old female with history of hypertension and asthma who came to [facility] due to reports of shortness of breath. Patient did have reported shortness of breath intermittently since May 2016. She stated progressively got worse. She did come to [facility] due to gaffer mention issues. Upon examination she did have chest radiograph negative for any cardiopulmonary process. She was however noted active bronchospasm. Patient also had slight leukocytosis with white count 11.6 and she did report moderate cough suspect secondary to person to infection likely acute bronchitis. Patient was provided antibiotics. She is also seen by drum straightener to help optimize her breathing. Patient did have some tachycardia like secondary to her shortness of breath and asthma. She was seen by malt house supervisor for further monitoring. She was provided with bronchodilators as well as steroid treatment and oxygen. During her course of stay she did improve. She did have good response to steroid therapy and bronchodilators. Her breathing did improve and her tachycardia did subside. She was otherwise optimized medically. She was continued on antihypertensives for hypertension. The plan of care was discussed with the patient and patient did verbalize her understanding. On the day of discharge patient was in stable condition Discussed plan of care with Dr. Khan Discharge process time is 40 minutes Disposition: Home Home Meds Active Scripts Levalbuterol* (Xopenex* HFA) 15 Gm Inha, 2 PUFFS INH Q4H Y for WHEEZING AND SOB , #1 INHALER 2 Refills Prov:REGHIRGEORGE 07/29/16 Salmeterol Xinaf/Fluticasone* (Advair*) 250-50 Diskus Inhaler, 1 INH INHALATION BID, #1 INHALER Prov:REGIDORGEORGE 07/29/16 Azithromycin* (Zithromax* Tri-Jt) 500 Mg Tablet, 500 MG PO DAILY for 3 Days, TAB Prov:REGGEORGE HERNANDEZ 07/29/16 Guaifenesin-Codeine Phosphate* (Robitussin* AC) 5 Ml Syrup, 10 ML PO Q4H Y for COUGH, #6 OZ Prov:REGIDORGEORGE 07/29/16 Prednisone* (Prednisone*) 10 Mg Tab, 10 MG PO DAILY, #30 TAB 1. Take 40mg by mouth daily for 3 days 2. then 30mg by mouth daily for 3 days 3. then 20mg by mouth daily for 3 days 4. then 10mg by mouth daily for 3 days Prov:REGIDORGEORGE 07/29/16 Acetamin/Butalbital/Caffeine* (Fioricet*) [id number] Tab, 2 TAB PO Q4 Y for cephalgia, #30 TAB Prov:REGIDORGEORGE 07/29/16 Captopril* (Captopril*) 25 Mg Tablet, 25 MG PO DAILY, #[address]HT MED FROM [facility] Prov:GEORGE FELIZ 07/29/16 Reported Medications Prednisone* (Prednisone*) 50 Mg Tablet, 50 MG PO DAILY, TAB STARTED 07-18-16 07/27/16 Follow-up Plan CONDITION Patient Condition: Stable HOME CARE INSTRUCTIONS: Special Diet: low chol low fat FOLLOW UP/APPOINTMENTS Appointments 1. Follow up with your primary care provider in one week Pending Labs Laboratory Tests Test 07/29/16 05:10 07/29/16 05:18 Basophils # 0.010^3/ul (0.0-0.1) Basophils % 0.2% (0.0-2.0) Eosinophils # 0.010^3/ul (0.0-0.5) Eosinophils % 0.0% (0.0-7.0) Hematocrit 41.8% (37.0-47.0) Hemoglobin 14.4g/dl (12.0-16.0) Lymphocytes # 1.010^3/ul (0.8-2.9) Lymphocytes % 14.1% (15.0-51.0) Mean Corpuscular Hemoglobin 30.3pg (29.0-33.0) Mean Corpuscular Hemoglobin Concent 34.4g/dl (32.0-37.0) Mean Corpuscular Volume 87.9fl (82.0-101.0) Mean Platelet Volume 10.3fl (7.4-10.4) Monocytes # 0.510^3/ul (0.3-0.9) Monocytes % 7.2% (0.0-11.0) Neutrophils # 5.510^3/ul (1.6-7.5) Neutrophils % 78.5% (39.0-77.0) Nucleated Red Blood Cells # 0.010^3/ul (0.0-0.0) Nucleated Red Blood Cells % 0.0/100WBC (0.0-0.0) Platelet Count 84379^3/UL (140-440) Red Blood Count 4.7510^6/ul (4.20-5.40) Red Cell Distribution Width 12.6% (11.5-14.5) White Blood Count 7.010^3/ul (4.8-10.8) Anion Gap 20 (8-16) Blood Urea Nitrogen 16mg/dl (7-20) Calcium Level 9.1mg/dl (8.4-10.2) Carbon Dioxide Level 28mmol/L (21-31) Chloride Level 100mmol/L (97-110) Creatinine 0.48mg/dl (0.44-1.00) Glucose Level 126mg/dl (70-220) Potassium Level 3.8mmol/L (3.5-5.1) Sodium Level 144mmol/L (135-144) Microbiology Date/Time Source Procedure Growth Status 07/28/16 14:00 Nares MRSA Screen - Preliminary Screening in process Resulted GEORGE FELIZ Jul 29, 2016 13:32
== END 2016-07-29 16:25 | disposition home or self-care (01) | DRG 871 ==
LOC: E/R 12:06 → PP2 20:51 → ICU 07-28 09:57 → MS4 07-28 14:17
PROVIDERS: ADMIT Hospitalist; ATTEND Hospitalist
DX: A41.9 Sepsis, unspecified organism (principal); N18.6 End stage renal disease; I12.0 Hypertensive chronic kidney disease with stage 5 chronic kidney disease or end stage renal disease; J45.901 Unspecified asthma with (acute) exacerbation; R00.0 Tachycardia, unspecified; J40 Bronchitis, not specified as acute or chronic; Z99.2 Dependence on renal dialysis
CPT/HCPCS: 36415; 36600; 71010; 80048; 80053; 80061; 81001; 81003; 82803; 83036; 83605; 83735; 84100; 84436; 84443; 84479; 84484; 85025; 85610; 85730; 87040; 87081; 87086; 87400; 90686; 93005; 93306; 94640; 94664; 96365; 96366; 96367; 96375; J0456; J0696; J2930; J7030

== ENCOUNTER 2016-12-19 14:08 | Emergency (ER) | payer MEDICAID, OTHER ==
[~2016-12-19] VITALS: Ht 154.9 cm; Wt 75.0 kg
[~2016-12-19 14:08] MED LIST: ADV25050 INHALATION; AZIT500T2 PO; CAPT25TA3 PO; FIORICET PO; LEVA15HF6 INH; PRED10TA PO; UDROBAC PO
[2016-12-19 14:11] VITALS: Ht 154.9 cm; Wt 75.0 kg
[2016-12-19] MEDS ORDERED: SOD CHLORIDE 0.9% 1,000 ML IV STA (14:21)
[2016-12-19] MEDS ORDERED: METOCLOPRAMIDE 10 MG INJ IV STA (14:21)
[2016-12-19] MEDS ORDERED: DIPHENHYDRAMINE 50 MG INJ IV ONE ×2 (14:30→17:00)
[2016-12-19 14:38] LABS: ADD SCAN DIFF NO
[2016-12-19 14:41] LABS: BASOPHIL # 0.1 10^3/ul (0.0-0.1); BASOPHILS % 0.9 % (0.0-2.0); EOSINOPHILS # 0.1 10^3/ul (0.0-0.5); EOSINOPHILS % 1.3 % (0.0-7.0); HEMATOCRIT 43.7 % (37.0-47.0); HEMOGLOBIN 15.2 g/dl (12.0-16.0); LYMPHOCYTES # 0.7 10^3/ul (0.8-2.9); LYMPHOCYTES % 6.9 % (15.0-51.0); MEAN CORPUSCULAR HEMOGLOBIN 30.5 pg (29.0-33.0); MEAN CORPUSCULAR HGB CONC 34.8 g/dl (32.0-37.0); MEAN CORPUSCULAR VOLUME 87.6 fl (82.0-101.0); MEAN PLATELET VOLUME 11.1 fl (7.4-10.4); MONOCYTE # 1.1 10^3/ul (0.3-0.9); MONOCYTES % 10.3 % (0.0-11.0); NEUTROPHIL # 8.5 10^3/ul (1.6-7.5); NEUTROPHILS % 80.3 % (39.0-77.0); PLATELET COUNT 204 10^3/UL (140-415); RED BLOOD COUNT 4.99 10^6/ul (4.20-5.40); RED CELL DISTRIBUTION WIDTH 11.9 % (11.5-14.5); WHITE BLOOD COUNT 10.6 10^3/ul (4.8-10.8)
[2016-12-19 14:55] LABS: INR 0.9; PROTIME 12.1 Sec (12.2-14.2); PT RATIO 0.9
[2016-12-19 14:56] LABS: PARTIAL THROMBOPLASTIN TIME 30.3 Sec (25.0-35.0)
[2016-12-19 14:58] LABS: ANION GAP 19 (8-16); BLOOD UREA NITROGEN 10 mg/dl (7-20); CALCIUM 10.7 mg/dl (8.4-10.2); CARBON DIOXIDE 24 mmol/L (21-31); CHLORIDE 101 mmol/L (97-110); CREATININE 0.46 mg/dl (0.44-1.00); GLUCOSE 103 mg/dl (70-220); POTASSIUM 4.1 mmol/L (3.5-5.1); SODIUM 140 mmol/L (135-144)
--- NOTE | 2016-12-19 15:02 | ERD ---
ER Documentation Chief Complaint Date/Time DATE: 12/19/16 TIME: 15:01 Chief Complaint BIB RA FOR EVAL OF HTN AND MERA HPI 58-year-old female comes in with her daughter complaining of an occipital headache that began earlier this morning. Headache is been gone approximately 5 hours and began gradually and then got worse. She also had nausea accompanying the headache. She suffered no trauma. She had some feeling of lightheadedness but no chest pain, shortness of breath, abdominal pain. States that the blood pressure was high at home although the family is values of systolic in the mid range around 150 with a single diastolic of 101. ROS All systems reviewed and are negative except as per history of present illness. Medications Home Meds Active Scripts Acetaminophen/Aspirin/Caffeine* (Excedrin*) 1 Tab Tab, 1 TAB PO Q6 for HEADACHE , #10 TAB Prov:MALIK CLEARY 12/19/16 Reported Medications Carvedilol* (Carvedilol*) 6.25 Mg Tablet, 6.25 MG PO BID Y for PRN, #60 TAB 12/19/16 Amlodipine Besylate* (Norvasc*) 5 Mg Tablet, 5 MG PO QPM, TAB 12/19/16 Enalapril Maleate* (Enalapril Maleate*) 5 Mg Tablet, 5 MG PO QAM, TAB 12/19/16 Discontinued Scripts Levalbuterol* (Xopenex* HFA) 15 Gm Inha, 2 PUFFS INH Q4H Y for WHEEZING AND SOB , #1 INHALER 2 Refills Prov:REGIDORGEORGE 07/29/16 Salmeterol Xinaf/Fluticasone* (Advair*) 250-50 Diskus Inhaler, 1 INH INHALATION BID, #1 INHALER Prov:REGIDORGEORGE 07/29/16 Azithromycin* (Zithromax* Tri-Jt) 500 Mg Tablet, 500 MG PO DAILY for 3 Days, TAB Prov:REGIDORGEORGE 07/29/16 Guaifenesin-Codeine Phosphate* (Robitussin* AC) 5 Ml Syrup, 10 ML PO Q4H Y for COUGH, #6 OZ Prov:REGIDORGEORGE 07/29/16 Prednisone* (Prednisone*) 10 Mg Tab, 10 MG PO DAILY, #30 TAB 1. Take 40mg by mouth daily for 3 days 2. then 30mg by mouth daily for 3 days 3. then 20mg by mouth daily for 3 days 4. then 10mg by mouth daily for 3 days Prov:GEORGE FELIZ 07/29/16 Acetamin/Butalbital/Caffeine* (Fioricet*) [id number] Tab, 2 TAB PO Q4 Y for cephalgia, #30 TAB Prov:GEORGE FELIZ 07/29/16 Captopril* (Captopril*) 25 Mg Tablet, 25 MG PO DAILY, #60 TAB BROUGHT MED FROM [facility] Prov:GEORGE FELIZ 07/29/16 Allergies Allergies: Coded Allergies: No Known Allergy (Unverified , 12/19/16) PMhx/Soc History of Surgery: No Anesthesia Reaction: No Hx Neurological Disorder: No Hx Respiratory Disorders: Yes (asthma) Hx Cardiac Disorders: No Hx Psychiatric Problems: No Hx Miscellaneous Medical Probl: Yes (htn) Hx Alcohol Use: No Hx Substance Use: No Hx Tobacco Use: No Physical Exam Vitals Vital Signs Date Time Temp Pulse Resp B/P Pulse Ox O2 Delivery O2 Flow Rate FiO2 12/19/16 17:53 97.9 89 18 134/78 100 Room Air 12/19/16 17:01 95 16 144/68 99 Room Air 12/19/16 16:01 84 17 156/89 94 Room Air 12/19/16 14:11 98.1 101 19 151/80 99 Physical Exam Const: [] Mild distress, appears in, Head: Atraumatic Eyes: Normal Conjunctiva, EOMI, PERRLA ENT: Normal External Ears, Nose and Mouth. Neck: Full range of motion..~ No meningismus. Resp: Clear to auscultation bilaterally Cardio: Regular rate and rhythm, no murmurs Abd: Soft, non tender, non distended. Normal bowel sounds Skin: No petechiae or rashes Back: No midline or flank tenderness Ext: No cyanosis, or edema Neur: Awake and alert and oriented 3, creatinine is 2 through 12 intact, no cerebellar deficits, normal gait Psych: Normal Mood and Affect Result Diagram: 12/19/16 1429 12/19/16 1429 Results 24 hrs Laboratory Tests Test 12/19/16 14:29 12/19/16 17:44 White Blood Count 10.610^3/ul Red Blood Count 4.9910^6/ul Hemoglobin 15.2g/dl Hematocrit 43.7% Mean Corpuscular Volume 87.6fl Mean Corpuscular Hemoglobin 30.5pg Mean Corpuscular Hemoglobin Concent 34.8g/dl Red Cell Distribution Width 11.9% Platelet Count 38027^3/UL Mean Platelet Volume 11.1fl Neutrophils % 80.3% Lymphocytes % 6.9% Monocytes % 10.3% Eosinophils % 1.3% Basophils % 0.9% Nucleated Red Blood Cells % 0.0/100WBC Neutrophils # 8.510^3/ul Lymphocytes # 0.710^3/ul Monocytes # 1.110^3/ul Eosinophils # 0.110^3/ul Basophils # 0.110^3/ul Nucleated Red Blood Cells # 0.010^3/ul Prothrombin Time 12.1Sec Prothrombin Time Ratio 0.9 INR International Normalized Ratio 0.90 Activated Partial Thromboplast Time 30.3Sec Sodium Level 140mmol/L Potassium Level 4.1mmol/L Chloride Level 101mmol/L Carbon Dioxide Level 24mmol/L Anion Gap 19 Blood Urea Nitrogen 10mg/dl Creatinine 0.46mg/dl Glucose Level 103mg/dl Calcium Level 10.7mg/dl Troponin I < 0.012ng/ml Urine Color COLORLESS Urine Clarity CLEAR Urine pH 7.0 Urine Specific [place] 1.005 Urine Ketones NEGATIVEmg/dL Urine Nitrite NEGATIVEmg/dL Urine Bilirubin NEGATIVEmg/dL Urine Urobilinogen NEGATIVEmg/dL Urine Leukocyte Esterase NEGATIVELeu/ul Urine Microscopic RBC 1/HPF Urine Microscopic WBC 1/HPF Urine Hemoglobin 1+mg/dL Urine Glucose NEGATIVEmg/dL Urine Total Protein NEGATIVEmg/dl Current Medications Medications (Trade) Dose Ordered Sig/[place] Route PRN Reason Start Time Stop Time Status Last Admin Dose Admin Sodium Chloride (NS) 1,000 ml @ 1,000 mls/hr Q1H STAT IV 12/19/16 14:21 12/19/16 15:20 DC 12/19/16 15:04 Metoclopramide HCl (Reglan) 10 mg ONCE STAT IV 12/19/16 14:21 12/19/16 14:26 DC 12/19/16 15:04 Diphenhydramine HCl (Benadryl) 6.25 mg ONCE ONCE IV 12/19/16 14:30 12/19/16 14:31 DC 12/19/16 15:04 Diphenhydramine HCl (Benadryl) 12.5 mg ONCE ONCE IV 12/19/16 17:00 12/19/16 17:01 DC 12/19/16 17:13 Trimethobenzamide HCl (Tigan) 200 mg ONCE ONCE IM 12/19/16 17:00 12/19/16 17:01 DC 12/19/16 17:26 Morphine Sulfate (morphine) 2 mg ONCE ONCE IV 12/19/16 17:00 12/19/16 17:01 DC 12/19/16 17:13 Procedures/MDM Acute headache and elderly female. Blood pressure was not significantly elevated. I have lower concern for subarachnoid hemorrhage because a negative CAT scan within 6 hours of onset of symptoms as well as gradual onset. Headache was resolved emergency room with a headache cocktail of 10 mg of Reglan , normal saline via IV, IV Benadryl. Patient was also given 2 mg of morphine. She feels much better. No signs of infection. Having her follow-up with primary care doctor in 1-2 days and return to emergency room for any return of symptoms. Head CT interpretation: I see no acute process. I see no hemorrhage, no mass- effect, no midline shift, no skull fracture EKG interpretation: Normal sinus rhythm rate of 100, normal axis, no ST or T- wave changes concerning for acute ischemia, normal intervals. Normal EKG Departure Diagnosis: Primary Impression: Headache, acute Additional Impressions: Lightheadedness Hypertension Nausea Condition: Stable EVINMALIK Dec 19, 2016 15:02
[2016-12-19 15:12] LABS: TROPONIN-I < 0.012 ng/ml (0.00-0.12)
--- NOTE | 2016-12-19 15:32 | RADRPT ---
PROCEDURE: CT Brain without contrast. CLINICAL INDICATION: Headache. TECHNIQUE: A CT of the brain without contrast was performed utilizing axial sections from the skul l base through the vertex. The patient was scanned without intravenous contrast enhancement. [place] l and coronal reformatted images were obtained using the data from the axial images. Total exam DLP is 630.20 mGy-cm. CTDIvol is 44.46 mGy. One or more of the following dose reduction techniques we re used: Automated exposure control, adjustment of the mA and/or kV according to patient size, use o f iterative reconstruction technique. COMPARISON: None available FINDINGS: There is normal robbins-white matter differentiation. There is enlargement of the ventricles and subarachnoid spaces consistent with atrophy. There is decreased attenuation of the periventricular white matter consistent with microangiopathic ischemic change. There is no intracranial hemorrhage or space-occupying lesion. There are vascular calcifications consistent with atherosclerosis. There is no skull fracture or lytic lesion. There is a right maxillary sinus polyp or cyst measuring 1.8 x 1.2 cm. There is right maxillary sinus mucosal thickening. The visualized paranasal sinuses are otherwise normal. IMPRESSION: 1. Atrophy. 2. Microangiopathic ischemic change. 3. Atherosclerosis. 4. Right maxillary sinus disease and right maxillary sinus polyp or cyst. 5. Otherwise unremarkable noncontrast CT scan of the brain. RPTAT: QQ .Darien Zamora MD, Date Time Electronically viewed and signed by .Darien Zamora MD, on 12/19/2016 15:31 .R/
[2016-12-19] MEDS ORDERED: ENAL5TAB PO (16:20)
[2016-12-19] MEDS ORDERED: AMLO5TAB4 PO (16:21)
[2016-12-19] MEDS ORDERED: CARV6.2579 PO (16:21)
[2016-12-19] MEDS ORDERED: morphine 2 MG INJ IV ONE (17:00)
[2016-12-19] MEDS ORDERED: TRIMETHOBENZAMIDE 100 MG/ML VIAL IM ONE (17:00)
[2016-12-19 17:53] VITALS: BP 134/78; PULSE 89; RESP 18; TEMP 97.9
[2016-12-19 18:11] LABS: ADD UMIC YES; UR ASCORBIC ACID NEGATIVE (NEGATIVE); UR BILIRUBIN (Dip) NEGATIVE (NEGATIVE); UR BLOOD (Dip) 1+ mg/dL (NEGATIVE); UR CLARITY CLEAR (CLEAR); UR COLOR COLORLESS (YELLOW); UR GLUCOSE (Dip) NEGATIVE (NEGATIVE); UR KETONES (Dip) NEGATIVE (NEGATIVE); UR LEUKOCYTE ESTERASE (Dip) NEGATIVE Leu/ul (NEGATIVE); UR NITRITE (Dip) NEGATIVE (NEGATIVE); UR RBC 1 /HPF (0-5); UR SPECIFIC GRAVITY (Dip) 1.005 (1.003-1.030); UR TOTAL PROTEIN (Dip) NEGATIVE (NEGATIVE); UR UROBILINOGEN (Dip) NEGATIVE (NEGATIVE)
[2016-12-19] MEDS ORDERED: EXCED PO (18:52)
== END 2016-12-19 19:01 | disposition home or self-care (01) ==
LOC: E/R 14:08
DX: R51 Headache (principal); R42 Dizziness and giddiness; I10 Essential (primary) hypertension; R11.0 Nausea; J45.909 Unspecified asthma, uncomplicated
CPT/HCPCS: 36415; 70450; 80048; 81001; 84484; 85025; 85610; 85730; 93005; 96372; 96374; 96375; 96376; J1200; J2270; J2765; J3250; J7030; Z7502